=== PATIENT | male | born 1985 | race Caucasian/White ===

== ENCOUNTER → 2019-08-22 08:32 | Outpatient (CLI) | payer BC | END | disposition home or self-care (01) | LOC: D.MRI 08:32 | PROVIDERS: ATTEND Nurse Practitioner | DX: M54.2 Cervicalgia (principal) ==

== ENCOUNTER 2019-12-28 08:58 | Day surgery (SDC) | payer BC ==
[~2019-12-28] VITALS: Ht 182.9 cm; Wt 92.5 kg
[~2019-12-28 08:58] MED LIST: LISINOPRIL10 MG PO; ULTRAM50 MG PO
[2019-12-28 10:17] LABS: HEMATOCRIT 44.5 % (42.0-54.0); HEMOGLOBIN 15.2 g/dL (13.5-17.5); MCHC 34.2 g/dL (31.0-37.0); MCV 87.9 fL (80.0-100.0); MEAN PLATELET VOLUME 10.6 fL (7.4-10.4); RBC 5.06 10x6/uL (4.20-6.10); RDW 12.9 % (11.5-14.5); WBC 5.9 10x3/uL (4.8-10.8)
[2019-12-28 10:19] VITALS: Ht 182.9 cm; Wt 92.5 kg
[2019-12-28] MEDS ORDERED: VISTARIL50 MG PO (12:51)
[2019-12-28] MEDS ORDERED: KEFLEX500 MG PO (12:51)
[2019-12-28] MEDS ORDERED: ZOFRAN ODT4 MG/UDTAB PO (12:51)
[2019-12-28] MEDS ORDERED: HYDROCODON-ACE1 EAC7 PO (12:51)
--- NOTE | 2019-12-29 09:32 | OP ---
PATIENT NAME: ABIMAEL HOOPER MEDICAL RECORD: [id number] LOCATION:[facility] ADMISSION DATE: SURGEON: CACHORRO PLUMMER DO DATE OF OPERATION: 12/28/2019 PROCEDURE PERFORMED: Left distal radius open reduction internal fixation with open carpal tunnel release. PREOPERATIVE DIAGNOSIS: Left distal radius intra-articular fracture and carpal tunnel syndrome. POSTOPERATIVE DIAGNOSIS: Left distal radius intra-articular fracture and carpal tunnel syndrome. INDICATIONS: Mr. Hooper is a 34-year-old right hand dominant male who fell a few days ago onto his left wrist with it outstretched. He had continued pain. He got x-rays and showed the distal radius fracture with intra-articular split. He also had numbness and tingling in the median nerve. He has had a little bit prior to this, but this is more severe now. Nurse practitioner talked to Abimael in clinic and informed him of the risk that if we did not fix since this was intra-articular, could split and cause continued pain and arthritis same with median nerve could be damaged and we need to release it. He is aware of the risks including, malunion, nonunion, continued pain, rupture of tendons and damage to vessels and nerves in the area including median nerve and he signed the consent. SURGEON: Cachorro Plummer DO DESCRIPTION OF PROCEDURE: The patient received block by anesthesia in the preoperative area and was taken to the operative suite, given 2 grams Ancef preoperatively. The patient was sedated and LMA was placed. The left upper extremity was then prepped and draped in sterile fashion. Timeout was performed, everyone was in agreeance with the correct side, site, patient, and procedure. We then began by doing the carpal tunnel part first. The left lower extremity was exsanguinated with an Esmarch and tourniquet was inflated to 250 mmHg, it was up for 42 minutes. I then made an incision in the palmar aspect along the fourth ray and sterile dissection was made down to the transverse carpal ligament and this was released proximally and distally and had a nice release on that opening up the carpal tunnel fully. We then made an incision over the flexor carpi radialis tendon. Careful dissection made down to the dorsal aspect of the tendon sheath and then down to the pronator quadratus. This was taken off the radius on the radial side then exposed the fracture and reduced and put a K-wire through the radial styloid into the ulnar aspect reducing the fracture nicely and then put the plate on and was confirmed to be in good position. We did compression locking screws ulnarly and 1 compression screw in the shaft. We then took the K-wires out and put a compression locking screws and locking screws in the radial side and then 2 more compression screws in the shaft. This had a nice reduction and was held very well. The tourniquet was then deflated and any bleeding was acquired with pickup and Bovie. The sites were irrigated. The open carpal tunnel site was closed with 4-0 nylon in a horizontal mattress fashion and the distal radius ORIF was closed with 2-0 Vicryl in inverted interrupted fashion and Prineo glue placed on the skin was then dressed with Adaptic, 4 x 4s, cast padding and a 3 x 12 splint placed volarly and secured with an Ben wrap. He was awakened and taken to recovery in stable condition. OPERATIVE REPORT [id number] ABIMAEL HOOPER BLOOD LOSS: Minimal. COMPLICATIONS: None. TRANSINT:[id number] Voice Confirmation ID: [id number] DOCUMENT ID: [id number] CACHORRO PLUMMER DO at 0932 CC: [id number] DICTATION DATE: 12/28/19 1256 [place] HOST: 12/28/19 2212 [facility] 12/28/19 [place] [id number] [place] [id number]
== END 2019-12-28 14:35 | disposition home or self-care (01) ==
LOC: D.OPS 08:58 → D.PAN 11:00 → D.OPS 11:30
PROVIDERS: Anesthesiology; ATTEND Orthopaedic Surgery
DX: S52.502A Unspecified fracture of the lower end of left radius, initial encounter for closed fracture (principal); G56.02 Carpal tunnel syndrome, left upper limb; W19.XXXA Unspecified fall, initial encounter; S52.612A Displaced fracture of left ulna styloid process, initial encounter for closed fracture